=== PATIENT | male | born 1980 | race Caucasian/White ===

== ENCOUNTER 2019-06-28 20:56 | Emergency (ER) | payer MEDICARE, SELFPAY ==
[2019-06-28 20:58] VITALS: BP 132/94; PULSE 78; RESP 18; TEMP 36.8; O2SAT 99; BMI 19.3
[2019-06-28 21:32] LABS: Absolute Lymphocyte Count 2.52 X10^3/uL (0.83-4.51); Absolute Neutrophil Count 10.4 X10^3/uL (2.0-7.7); Basophil# 0.06 X10^3/uL; Basophil% 0.4 % (0-1); Eosinophil# 0.21 X10^3/uL; Eosinophils% 1.5 % (0-5); Hematocrit 45.2 % (40-54); Hemoglobin 14.8 g/dL (13.0-16.5); Lymphocyte # 2.52 X10^3/ul (4.0); Mean Corp Hgb Conc 32.7 g/dL (32-36); Mean Corpuscular Hgb 30.6 pg (27.0-32.0); Mean Corpuscular Volume 93.4 fL (80-94); Mean Platelet Vol. 10.2 fl (6.2-12.0); Monocyte# 0.79 X10^3/uL; Monocyte% 5.6 % (0-10); NRBC Flagged by Analyzer 0 % (0-5); Neutrophil # 10.38 X10^3/uL (2.7-7.7); Neutrophil % 74.1 % (47-70); Platelet Count 313 K/mm3 (150-450); RBC Distribution Width CV 13.5 % (11.6-14.6); RBC Distribution Width SD 46.1 fl (35.1-43.9); Red Blood Count 4.84 M/mm3 (4.6-6.2)
[2019-06-28] MEDS: 0.9% Normal Saline 1,000 ML 999 ML IV (21:45)
--- NOTE | 2019-06-28 21:49 | ED.RN ---
spoke with mother at this time, mother is willing to come and pick patient up, mother requesting to pick him up in the morning mothers number [phone]
[2019-06-28 22:10] LABS: Anion Gap 5 (5-15); BUN 14 mg/dL (7-18); BUN/Creat Ratio 19.4 RATIO (10-20); Chloride 101 mmol/L (98-107); Creatinine, Serum 0.72 mg/dL (0.70-1.30); EST Glomerular Filtration Rate 129 mL/min (>60); Est Glom Filt Rate - Afr Amer 156 mL/min (>60); Estimated Creatinine Clearance 115.34 ml/min; Glucose 114 mg/dL (74-106); Potassium 3.5 mmol/L (3.5-5.1); Sodium Level 137 mmol/L (136-145)
[2019-06-28 22:19] LABS: AST(SGOT) 38 U/L (15-37); Alanine Aminotransfer ALT/SGPT 29 U/L (16-61); Albumin, Serum 4.1 g/dL (3.2-5.0); Alkaline Phosphatase 89 U/L (45-117); Bilirubin, Direct 0.22 mg/dL (0.00-0.30); Globulin 4.9 g/dL (2.2-4.2)
[2019-06-28 22:26] LABS: CPK Total, Creatine Kinase 523 U/L (39-308); Lipase 99 U/L (73-393)
[2019-06-28 22:27] LABS: Alcohol, Blood (Medical)-Serum < 3.0 mg/dL
[2019-06-28 23:16] LABS: Bacteria 0 SEEN /hpf (None Seen); Red Blood Cells-Urine 0 SEEN /hpf (0-5)
[2019-06-28 23:22] LABS: Color, Urine Yellow (Yellow); Glucose, Dipstick Normal (Normal); Ketone-Dipstick 5 mg/dl (Negative); Leukocyte Esterase-Dipstick 25 /ul (Negative); Nitrite-Dipstick Negative (Negative); Occult Blood-Urine Negative /ul (Negative); Protein-Dipstick 15 mg/dl (Negative); Specific Gravity, Urine 1.015 (1.002-1.030); Urine Bilirubin Dipstick Negative (Negative); Urine Clarity Clear (Clear); Urine Urobilinogen 1 mg/dl (Normal)
[2019-06-28 23:27] VITALS: BP 107/62; PULSE 89; RESP 18; O2SAT 97
[2019-06-28 23:28] LABS: Squamous Epithelial Cells - UA 0-5 SEEN /hpf (0-5)
[2019-06-28 23:29] LABS: Mucous, Urine 1+ /hpf (<or=2+); White Blood Cells 0-5 SEEN /hpf (0-5)
[2019-06-28] MEDS: ARIPiprazole 10 MG Tablet 20 MG PO (23:29)
[2019-06-28 23:37] LABS: Amphetamine Urine VISTA NEGATIVE (<1000 ng/mL); Barbiturate Urine VISTA NEGATIVE (< 200 ng/mL); Benzodiazepine Urine VISTA NEGATIVE (< 200 ng/mL); Cocaine Urine VISTA NEGATIVE (< 300 ng/mL); Ecstacy Urine VISTA NEGATIVE (< 500 ng/mL); Methadone Urine VISTA NEGATIVE (< 300 ng/mL); PCP Urine VISTA NEGATIVE (< 25 ng/mL); THC Urine VISTA NEGATIVE (< 50 ng/mL); Vista UDS pH Range 6
[2019-06-29] VITALS (8 sets, daily range): BP systolic 113–139; BP diastolic 62–88; PULSE 71–78; RESP 15–16; O2SAT 96–98
--- NOTE | 2019-06-29 00:16 | ED.DCSUM_ITS ---
- ER Visit Summary Date of Service: 06/29/19 Chief Complaint: Found on roadway History of Present Illness: The patient is a 39 M who was found on the roadway today. States that he is walking to [facility] to meet a girl he found on a daily nap. He states that he is from [place]. States that he was in [place] earlier was speaking with his mom who is trying to find him. Apparently he lives in [place] with her he has history of schizophrenia. He does not have his medications. He has shoes but he does not have any money. States he has a history of drug use but has not used for a while. Physical Examination: Afebrile vital signs stable Gen: Well-nourished well-developed patient is disheveled Head: Normocephalic atraumatic Eyes: Perrl EOMI ENT: TMs clear no rhinorrhea moist mucous membranes Neck: Supple no lymphadenopathy no JVD nontender CVS: Regular rate rhythm no murmurs normal S1-S2 Respiratory: No distress clear to auscultation bilaterally chest nontender Abdomen: Soft nontender nondistended normal bowel sounds no masses Back: Nontender Extremity: Nontender no edema Skin: Patient has healed parr across his torso arms. Neuro: alert orientated ?3 CN II-XII intact normal strength sensation Psych: She denies suicidality or homicidality. Is cooperative with staff. He appears internally stimulated. Test Results: Psychiatric screening labs were obtained. Note a CK of about 500 Emergency Department Course and Treatment: She received IV fluids was given food and drink. He allowed us to contact his mother states that she has been worried and has been looking for him. One point they were in [place] where he said he was the could not make contact with him. She states that if we can keep him here tonight she will be down in the morning to get him. I think this is a reasonable plan. I do not think the patient requires inpatient hospitalization at this time. He is not suicidal. He is not homicidal. Family is willing to take him and care for him. He received a dose of Abilify which she did not yet have today per his mother Impression: 1. Schizophrenia This note was generated with ebookpieation software. It may contain incorrect words, spelling, and punctuation that were not noted in review of the chart prior to signing ED Disposition - Plan for ED Patient: Disposition: Home or Assisted Living Instructions: SCHIZOPHRENIA, General Additional Instructions: You need to see your psychiatrist as soon as possible. You need your medications.
--- NOTE | 2019-06-29 02:15 | ED.DEP ---
ED Disposition - Plan for ED Patient: Disposition: Home or Assisted Living Instructions: SCHIZOPHRENIA, General, Wound Care Prescriptions: Cephalexin [Keflex] 500 mg PO Q6 #40 cap Prescription Printed Referrals: Care Physician,No Primary [Primary Care Provider] - Clinic,Wound [None] - Additional Instructions: You need to see your psychiatrist as soon as possible. You need your medications.
--- NOTE | 2019-06-29 02:30 | ED.RN ---
DR NOTIFIED OF THE PTS WOUNDS TO THR AXILLARY AREA ON BILAT ARMS, DR IVY SWABBED THEM. DRESSINGS APPLIED.
--- NOTE | 2019-06-29 03:08 | ED.RN ---
CALLED [facility] FOR DRUG TESTING
== END 2019-06-29 10:09 | disposition home or self-care (01) ==
PROVIDERS: Emergency Provider Emergency Medicine
DX: F20.9 Schizophrenia, unspecified (principal); T22.042A Burn of unspecified degree of left axilla, initial encounter; Z72.0 Tobacco use; Z79.899 Other long term (current) drug therapy
CPT/HCPCS: 80048; 80076; 80307; 80320; 81001; 82550; 83690; 84484; 85025; 87070; 87077; 87186; 87205; 96360; 96361; 99285; J7030; A4216; G0480